=== PATIENT | male | born 1980 | race Two or more races ===

== ENCOUNTER → 2018-05-19 10:31 | Outpatient (CLI) | payer BC, SELFPAY ==
[2018-05-19 14:29] LABS: Free T4 (Free Thyroxine) 1.07 ng/dl (0.76-1.46); Thyroid Stimulating Hormone 3.68 uIU/ml (0.358-3.740)
[2018-05-20 10:15] LABS: LH 6.1 mIU/mL (1.7-8.6)
[2018-05-21 10:14] LABS: FSH 3.6 mIU/mL (1.5-12.4)
[2018-05-23 08:01] LABS: Testosterone, Total, LC/MS 381.9 ng/dL (264.0-916.0); Testosterone,Free 7.9 pg/mL (8.7-25.1)
== END ==
PROVIDERS: Visit Provider Urology
DX: N46.9 Male infertility, unspecified (principal)
CPT/HCPCS: 36415; 83001; 83002; 84402; 84403; 84439; 84443

== ENCOUNTER → 2018-05-23 08:30 | Outpatient (CLI) | payer BC, SELFPAY ==
[2018-05-23 14:24] LABS: Motility Quality Rapid Progression (Mod-Rapid); Semen Viscosity Clumped (Normal); Sperm Count 153 mil/mm3 (20-160); Sperm Motility 80 % (50-90); WBCs,Semen Small
[2018-05-23 14:25] LABS: 3Hr Motility Quality Good Progression (Mod-Rapid); 3Hr Sperm Motility 60 % (50-60); Sperm Morphology Normal (Normal)
== END ==
PROVIDERS: Visit Provider Urology
DX: N46.9 Male infertility, unspecified (principal)
CPT/HCPCS: 89320

== ENCOUNTER 2020-08-01 15:54 | Emergency (ER) | payer BC, SELFPAY ==
[2020-08-01 15:56] VITALS: BP 133/77; PULSE 76; RESP 14; TEMP 39.6; O2SAT 97; BMI 29.7
[2020-08-01 16:25] VITALS: BP 132/71; PULSE 123; RESP 18; TEMP 38.6; O2SAT 98
--- NOTE | 2020-08-01 16:28 | [facility].EDGENADL ---
ED Disposition Clinical Impression: Viral syndrome Disposition: Home, Self-Care Condition on Discharge: Good Instructions: DI for Gastrointestinal Bleeding, DI for Viral Syndrome Prescriptions: Ondansetron [Zofran 4mg ODT] 4 mg PO Q6 PRN #10 tab.rapdis PRN Reason: Nausea Transmission Status: Pending to [id number] Referrals: Evans Jiang MD [Primary Care Provider] - 3 days - Critical Care Critical Care Time: No Attestation: On 08/01/20, the high probability of a clinically significant, sudden or life threatening deterioration of the following system(s) required my full and direct attention, intervention and personal management. The time I documented below is in addition to time spent performing reported procedures but includes the following listed in this critical care notation. Medical Decision Making - Medical Records Medical records reviewed: Yes: I reviewed the patient's medical records. - Ivna Inquiry Pt receiving controlled substance: No Vital Signs: 08/01/20 15:56 08/01/20 16:25 Temperature 103.2 F H 101.5 F H Temperature Source Oral Oral Pulse Rate 123 H Pulse Rate [Right] 76 Respiratory Rate 14 18 Blood Pressure 132/71 Blood Pressure [Right Arm] 133/77 Blood Pressure Mean [Right Arm] 95 02 Sat by Pulse Oximetry 97 98 Oxygen Delivery Method Room Air - Lab Data Lab results reviewed: Yes: I reviewed the patient's lab results. Lab Results 08/01/20 16:30: WBC 12.0 H, RBC 4.98, Hgb 14.5, Hct 42.0, MCV 84.4, MCH 29.1, MCHC 34.5, RDW 11.7, Plt Count 261, MPV 8.3, Neut % (Auto) 88.5 H, Lymph % (Auto) 5.2 L, Donley % (Auto) 5.3, Eos % (Auto) 0.4, Baso % (Auto) 0.6, Neut # (Auto) 10.6 H, Lymph # (Auto) 0.6 L, Donley # (Auto) 0.6, Eos # (Auto) 0.1, Baso # (Auto) 0.1, Total Counted 100, Neutrophils % (Manual) 84 H, Lymphocytes % (Manual) 8 L, Monocytes % (Manual) 8, Platelet Estimate Normal, RBC Morphology Normal 08/01/20 16:30: Sodium 134 L, Potassium 3.7, Chloride 102, Carbon Dioxide 26, Anion Gap 9.7, BUN 17, Creatinine 1.00, Estimated Creat Clear 125, Estimated GFR 82, Est GFR ( Amer) 100, Glucose 107 H, Calcium 8.8, Total Bilirubin 0.9, AST 29, ALT 30, Alkaline Phosphatase 67, Total Protein 7.7, Albumin 4.4, Globulin 3.3 H, Albumin/Globulin Ratio 1.3, Lipase 79 08/01/20 17:51: Stool Occult Blood Positive A Result diagrams: 08/01/20 16:30 08/01/20 16:30 Orders (Tests/Meds): ED MEDICATIONS Discontinued Medications Generic Name Dose Route Start Last Admin Trade Name Freq PRN Reason Stop Dose Admin Acetaminophen 975 mg 08/01/20 16:28 08/01/20 16:49 Acetaminophen 325mg Tab PO 08/01/20 16:29 975 mg ONCE ONE Administration Sodium Chloride 1,000 mls @ 999 mls/hr 08/01/20 16:30 08/01/20 17:03 Sod Chlor 0.9% 1000ml Bag IV 08/01/20 17:30 999 mls/hr .Q1H1M UMANG Administration Iopamidol 75 ml 08/01/20 17:21 08/01/20 17:22 Iopamidol-370 (76%);100ml Bottle IV 08/01/20 17:22 75 ml ONCE ONE Administration Ondansetron HCl 4 mg 08/01/20 16:29 08/01/20 17:03 Ondansetron 4mg/2ml Vial IV 08/01/20 16:30 4 mg ONCE ONE Administration Sodium Chloride 10 ml 08/01/20 17:21 08/01/20 17:22 Sodium Chloride 0.9% 10ml Syr (Rad Only) IV 08/01/20 17:22 10 ml ONCE ONE Administration - CT Data CT Scan: Abdomen, Pelvis Time Received: 18:[address] Reviewed: Yes: I have reviewed the patient's CT results Findings Narrative: FINDINGS: Liver: Normal. No mass. Gallbladder and bile ducts: Normal. No calcified stones. No ductal dilation. Pancreas: Normal. No ductal dilation. Spleen: Normal. No splenomegaly. Adrenal glands: Normal. No mass. Kidneys and ureters: Normal. No hydronephrosis. Stomach and bowel: Unremarkable. No obstruction. No mucosal thickening. Appendix: No evidence of appendicitis. Intraperitoneal space: Unremarkable. No free air. No significant fluid collection. Vasculature: Unremarkable. No
[2020-08-01 16:38] LABS: Basophils # 0.1 K/mm3 (0-0.2); Basophils % 0.6 % (0.1-2.0); Eosinophils # 0.1 K/mm3 (0.0-0.4); Eosinophils % 0.4 % (0.1-12.0); Hemoglobin 14.5 g/dL (14.1-18.0); Lymphocytes # 0.6 K/mm3 (0.7-4.5); Lymphocytes % 5.2 % (10-50); Mean Corpuscular HGB Conc 34.5 g/dL (31.8-35.4); Mean Corpuscular Hemoglobin 29.1 pg (27.0-31.2); Mean Corpuscular Volume 84.4 fl (80-94); Mean Platelet Volume 8.3 fl (7.4-10.4); Monocytes # 0.6 K/mm3 (0.1-1.0); Monocytes % 5.3 % (1.7-9.3); Neutrophils # 10.6 K/mm3 (1.8-7.8); Neutrophils % 88.5 % (37.0-80.0); Platelet Count 261 K/mm3 (142-424); Red Blood Count 4.98 M/mm3 (4.60-6.20); Red Cell Distribution Width 11.7 % (11.5-17.5)
--- NOTE | 2020-08-01 16:42 | CT_ITS ---
PROCEDURE INFORMATION: Exam: CT Abdomen And Pelvis With Contrast Exam date and time: 08/01/2020 4:42 PM Age: 40 years old Clinical indication: Abdominal pain; Additional info: Bloody stool, fever TECHNIQUE: Imaging protocol: Computed tomography of the abdomen and pelvis with contrast. Radiation optimization: All CT scans at this facility use at least one of these dose optimization techniques: automated exposure control; mA and/or kV adjustment per patient size (includes targeted exams where dose is matched to clinical indication); or iterative reconstruction. Contrast material: ISOVUE; Contrast volume: 75 ml; Contrast route: IV; COMPARISON: No relevant prior studies available. FINDINGS: Liver: Normal. No mass. Gallbladder and bile ducts: Normal. No calcified stones. No ductal dilation. Pancreas: Normal. No ductal dilation. Spleen: Normal. No splenomegaly. Adrenal glands: Normal. No mass. Kidneys and ureters: Normal. No hydronephrosis. Stomach and bowel: Unremarkable. No obstruction. No mucosal thickening. Appendix: No evidence of appendicitis. Intraperitoneal space: Unremarkable. No free air. No significant fluid collection. Vasculature: Unremarkable. No abdominal aortic aneurysm. Lymph nodes: Unremarkable. No enlarged lymph nodes. Urinary bladder: Unremarkable as visualized. Reproductive: Unremarkable as visualized. Bones/joints: Bilateral L5 spondylolysis and grade 1 L5-S1 spondylolisthesis. Soft tissues: Unremarkable. IMPRESSION: Bilateral L5 spondylolysis and grade 1 L5-S1 spondylolisthesis.
[2020-08-01 16:46] LABS: MANUAL DIFFERENTIAL MANUAL DIFFERENTIAL (MANUAL DIFF)
[2020-08-01 16:50] LABS: Alanine Aminotransferase 30 U/L (12-78); Albumin Level 4.4 g/dl (3.5-5.0); Albumin/Globulin Ratio 1.3 (1.1-1.8); Alkaline Phosphatase 67 U/L (38-126); Anion Gap 9.7 mEq/L (5-15); Aspartate Amino Transferase 29 U/L (17-59); Bilirubin,Total 0.9 mg/dl (0.2-1.3); Blood Urea Nitrogen 17 mg/dl (9-20); Calcium 8.8 mg/dl (8.4-10.2); Carbon Dioxide 26 mmol/L (22.0-30.0); Chloride 102 mmol/L (98-107); Creatinine Clearance Estimated 125 mL/min (50-200); Estimated Glomerular Filt Rate 82 ml/min (>60); GFR (African American) 100 ML/MIN (>60); Globulin 3.3 g/dL (1.3-3.2); Glucose 107 mg/dl (74-100); Lipase 79 U/L (23-300); Potassium 3.7 mmoL/L (3.5-5.1); Sodium 134 mmol/L (136-145); Total Protein,Serum 7.7 g/dl (6.3-8.2)
[2020-08-01 17:09] LABS: Lymphocytes % 8 % (10-50); Monocytes % 8 % (2-9); Neutrophils % 84 % (42-76); Platelet Estimate Normal; RBC Morphology Normal; Total Cells Counted 100
[2020-08-01 17:30] VITALS: BP 111/61; PULSE 111; RESP 13; O2SAT 94
[2020-08-01 17:55] LABS: Occult Blood,Stool Positive (Negative)
[2020-08-01 18:35] VITALS: BP 113/73; PULSE 105; RESP 13; TEMP 38.1; O2SAT 98
== END 2020-08-01 18:48 | disposition home or self-care (01) ==
PROVIDERS: Emergency Provider Emergency Medicine; PCP Family Medicine
DX: B34.9 Viral infection, unspecified (principal); K92.1 Melena; R11.0 Nausea
CPT/HCPCS: 74177; 80053; 82272; 83690; 85007; 85025; 96365; 96367; 99283; G0328; J2405; Q9967

== ENCOUNTER → 2021-08-30 08:34 | Outpatient (CLI) | payer BC, SELFPAY ==
[2021-08-30 10:33] LABS: T4 (Thyroxine) 10.2 ug/dl (5.53-11.0)
[2021-08-30 15:31] LABS: PH,Semen 8.5 (7.3-8.3); Semen Viscosity Stringy (Normal); Sperm Motility 70 % (50-90); WBCs,Semen Trace
[2021-08-30 15:32] LABS: 3Hr Motility Quality Moderate Progression (Mod-Rapid); 3Hr Sperm Motility 30 % (50-60); Motility Quality Good Progression (Mod-Rapid); Sperm Count 166 mil/mm3 (20-160)
[2021-08-30 15:36] LABS: Sperm Morphology Normal (Normal)
[2021-09-03 22:11] LABS: Testosterone, Total, LC/MS 333.1 ng/dL (264.0-916.0); Testosterone,Free 11.3 pg/mL (6.8-21.5)
== END ==
PROVIDERS: Visit Provider Urology
DX: N46.9 Male infertility, unspecified (principal)
CPT/HCPCS: 36415; 84402; 84403; 84436; 89320